=== PATIENT | female | born 1950 | race Hispanic/Latino ===

== ENCOUNTER 2018-08-28 21:26 | Emergency (ER) | payer OTHER ==
[~2018-08-28] VITALS: Ht 160 cm; Wt 72.6 kg
[2018-08-28] MEDS ORDERED: NORCO 5-325 TA1 EACH PO (23:47)
[2018-08-28] MEDS ORDERED: ZOFRAN4 MG PO (23:47)
== END 2018-08-29 00:27 | disposition home or self-care (01) ==
LOC: ED 21:26
DX: M25.511 Pain in right shoulder (principal); M54.2 Cervicalgia; M79.601 Pain in right arm; W00.0XXA Fall on same level due to ice and snow, initial encounter; I10 Essential (primary) hypertension; E11.9 Type 2 diabetes mellitus without complications
CPT/HCPCS: 72125; 73030; 73060; 96374; 96375; 96376; 99284-25; J1170; J2405

== ENCOUNTER 2018-09-25 22:47 | Emergency (ER) | payer MEDICARE, OTHER ==
[~2018-09-25] VITALS: Ht 160 cm; Wt 54.4 kg
[~2018-09-25 22:47] MED LIST: NORCO 5-325 TA1 EACH PO; ZOFRAN4 MG PO
--- OUTSIDE RECORDS SUMMARY | 2018-09-25 22:50 | XMS ---
PreManage Notification: MATILDA DSOUZA Security [employer] Events No recent Security Events currently on file CRITERIA MET - [facility] - 2 Visits in 30 Days CARE PROVIDERS MARION HACKETT [facility] Current PHONE: Unknown Zach has no Care Guidelines for this patient. Carmencita VISIT COUNT (12 MO.) 2 [facility] TOTAL 2 NOTE: Visits indicate total known visits. ED/C VISIT TRACKING (12 MO.) 09/25/2018 22:47 [facility] TYPE: Emergency COMPLAINT: - R SIDE NECK/SHOULDER PAIN 08/28/2018 21:28 [facility] TYPE: Emergency COMPLAINT: - RIGHT ELBOW PAIN/INJURY DIAGNOSES: - Pain in right arm - Type 2 diabetes mellitus without complications - Essential (primary) hypertension - Fall on same level due to ice and snow, initial encounter - Pain in right shoulder - Cervicalgia INPATIENT VISIT TRACKING (12 MO.) No inpatient visits to display in this time frame [email or web address]
== END 2018-09-26 00:50 | disposition home or self-care (01) ==
LOC: ED 22:47
DX: M25.511 Pain in right shoulder (principal); I10 Essential (primary) hypertension; E11.9 Type 2 diabetes mellitus without complications
CPT/HCPCS: 73030; 99283